=== PATIENT | female | born 1995 | race African-American/Black ===

== ENCOUNTER 2025-02-21 09:57 | Emergency (ER) | payer OTHER ==
[~2025-02-21] VITALS: Ht 167.6 cm; Wt 75.0 kg
[2025-02-21 10:03] VITALS: O2SAT 100
[2025-02-21 10:18] VITALS: BP 101/62; PULSE 83; RESP 17; TEMP 36.8; O2SAT 100
[2025-02-21] MEDS ORDERED: ERYT1OIN6 RIGHTEYE (11:05)
[2025-02-21] MEDS: FLUORESCEIN SODIUM 1MG/STRIP BOTHEYE ONE (11:06)
[2025-02-21] MEDS: TETRACAINE 0.5% OPHTH DROPS 4ML BOTHEYE ONE (11:06)
== END 2025-02-21 11:17 | disposition home or self-care (01) ==
LOC: ER 09:57
DX: S05.01XA Injury of conjunctiva and corneal abrasion without foreign body, right eye, initial encounter (principal); J45.909 Unspecified asthma, uncomplicated; E78.00 Pure hypercholesterolemia, unspecified; X58.XXXA Exposure to other specified factors, initial encounter; Y93.89 Activity, other specified; Y92.89 Other specified places as the place of occurrence of the external cause; Y99.8 Other external cause status
CPT/HCPCS: 99283